=== PATIENT | male | born 1965 | race Two or more races ===

== ENCOUNTER 2024-03-07 09:06 | Day surgery (SDC) | payer OTHER ==
[2024-03-01 09:01] VITALS: BMI 29.0
[2024-03-07] MEDS: CYCLOPENTOLATE 2% OPHTH SOLN 2 ML BOTTLE ONE (10:05)
[2024-03-07] MEDS: PHENYLEPHRINE 2.5% OPTHALMIC DROP 2ML BOTTLE ONE (10:05)
[2024-03-07] MEDS: TROPICAMIDE 1% OPHTH SOLN 15 ML BOTTLE ONE (10:05)
[2024-03-07] MEDS: CIPROFLOXACIN 0.3% EYE DROPS 5 ML BOTTLE ONE (10:05)
[2024-03-07] MEDS ORDERED: TETRACAINE 0.5% OPHTH SOLN 2 ML BOTTLE ONE (10:14)
[2024-03-07] MEDS ORDERED: BSS (NA/CA/MG/K) BALANCED SALT SOLUTION OPHTH SOLN 15 ML BOTTLE ONE (10:14)
[2024-03-07] MEDS ORDERED: LIDOCAINE 1% P/F 10 MG/ML VIAL ONE (10:14)
[2024-03-07] MEDS ORDERED: NEO/POLYMYX B SULF/DEXAMETH OPHTHALMIC 5ML BOTTLE ONE (10:14)
[2024-03-07] MEDS ORDERED: CARBACHOL 0.01% INTRA-OCULAR 1.5 ML VIAL ONE (10:14)
[2024-03-07] MEDS ORDERED: MIDAZOLAM HCL 2 MG/2 ML SINGLE DOSE VIAL ONE (12:28)
[2024-03-07 14:24] VITALS: TEMP 98
[2024-03-07 14:26] VITALS: BP 112/76; PULSE 78; RESP 16
== END 2024-03-07 13:55 | disposition home or self-care (01) ==
LOC: FASU 09:06
PROVIDERS: ATTEND Ophthalmology
PROC: 08RK3JZ Replacement of Left Lens with Synthetic Substitute, Percutaneous Approach (ICD-10-PCS; principal; 2024-03-07 12:33)
DX: H26.8 Other specified cataract (principal)
CPT/HCPCS: 66984; V2632

== ENCOUNTER 2024-04-03 08:00 | Day surgery (SDC) | payer OTHER ==
[2024-03-28 14:37] VITALS: BMI 29.0
[2024-04-03] MEDS ORDERED: EPINEPHrine/PF 1 MG/1 ML (1:1,000) AMPULE ONE (08:06)
[2024-04-03] MEDS ORDERED: LIDOCAINE 1% P/F 10 MG/ML VIAL ONE (08:06)
[2024-04-03] MEDS ORDERED: CARBACHOL 0.01% INTRA-OCULAR 1.5 ML VIAL ONE (08:06)
[2024-04-03] MEDS ORDERED: NEO/POLYMYX B SULF/DEXAMETH OPHTHALMIC 5ML BOTTLE ONE (08:06)
[2024-04-03] MEDS ORDERED: TETRACAINE 0.5% OPHTH SOLN 2 ML BOTTLE ONE (08:06)
[2024-04-03] MEDS ORDERED: BSS (NA/CA/MG/K) BALANCED SALT SOLUTION OPHTH SOLN 15 ML BOTTLE ONE (08:06)
[2024-04-03] MEDS: TROPICAMIDE 1% OPHTH SOLN 15 ML BOTTLE ONE (08:15)
[2024-04-03] MEDS: CIPROFLOXACIN 0.3% EYE DROPS 5 ML BOTTLE ONE (08:15)
[2024-04-03] MEDS: PHENYLEPHRINE 2.5% OPTHALMIC DROP 2ML BOTTLE ONE (08:15)
[2024-04-03] MEDS: CYCLOPENTOLATE 2% OPHTH SOLN 2 ML BOTTLE ONE (08:15)
[2024-04-03 08:24] VITALS: TEMP 97.5
[2024-04-03] MEDS ORDERED: MIDAZOLAM HCL 2 MG/2 ML SINGLE DOSE VIAL ONE (08:30)
[2024-04-03 12:03] VITALS: BP 119/82; PULSE 71; RESP 19
== END 2024-04-03 10:20 | disposition home or self-care (01) ==
LOC: FASU 08:00
PROVIDERS: ATTEND Ophthalmology
PROC: 08RJ3JZ Replacement of Right Lens with Synthetic Substitute, Percutaneous Approach (ICD-10-PCS; principal; 2024-04-03 09:09)
DX: H26.8 Other specified cataract (principal)
CPT/HCPCS: 66984; V2632